=== PATIENT | male | born 1970 | race Caucasian/White ===

== ENCOUNTER 2020-05-19 21:28 | Emergency (ER) | payer OTHER, SELFPAY ==
--- NOTE | ~2020-05-19 | CT_ITS ---
EXAMINATION: CT orbit BI w con DATE: 05/19/2020 22:24 INDICATION: Left-sided headache, left sided conjunctival hemorrhage. TECHNIQUE: Computed tomography (CT) of the orbits was performed with 75 cc of Omnipaque 350 intraveno us contrast. The dose-length product (DLP) was 262.38 mGy-cm. Automated exposure control and iterativ e reconstruction technique were employed. COMPARISON: None. FINDINGS: The globes are unremarkable. The orbits are normal. No abnormal enhancement is present. The facial bones are normal. The paranasal sinuses are well aerated. Margaret bullosa is noted in the left middle turbinate. IMPRESSION: 1. No CT correlate for the patient's symptoms. Reviewed, dictated and finalized at location A. OMER OPERATOR
--- NOTE | ~2020-05-19 | CT_ITS ---
EXAMINATION: CT brain wo con INDICATION: Left-sided headache, subconjunctival hemorrhage COMPARISON: None TECHNIQUE: Standard unenhanced head CT. The dose-length product (DLP) was 605.33 mGy-cm. The mA was a djusted according to patient size. Iterative reconstruction technique was employed. FINDINGS: There is no intracranial hemorrhage, acute infarction, or abnormal mass lesion. The ventric les are normal. There is no abnormal mass effect or midline shift. The ventura-white matter differentiat ion is normal. The basal cisterns are patent. The orbits are normal. The paranasal sinuses, mastoids and calvarium are normal. IMPRESSION: 1. No acute intracranial abnormality. Reviewed, dictated and finalized at location A. MOTIVE PIPE FITTER
[2020-05-19 21:31] VITALS: BP 139/81; PULSE 83; RESP 17; TEMP 36.7; O2SAT 98
--- NOTE | 2020-05-19 21:34 | ED.EYEPROB ---
HPI - Eye Problem General Chief complaint: Eye Problems Stated complaint: headache Time Seen by Provider: 05/19/20 21:34 Source: patient Mode of arrival: ambulatory Limitations: no limitations History of Present Illness HPI Narrative: Patient is a 49 yo male who presented to the ER for evaluation of left eye irritation and left sided headache. Pt states he experiences headaches daily which is normal for him, however started to experience a left sided headache with pain behind his left eye. Pt also with redness to left eye that developed suddenly. Pt reports his vision might be slightly blurry in his left eye. Not on any anticoagulation. He denies any straining activity or heavy lifting today. He does work out daily and did work out today, but nothing abnormal for him. He denies frontal eye pain, tearing, or discharge. No history of trauma to the eye. He does not wear contact lenses. Related Data Home Medications Medication Instructions Recorded Confirmed meloxicam 05/19/20 05/19/20 Allergies Allergy/AdvReac Type Severity Reaction Status Date / Time No Known Allergies Allergy Verified 05/19/20 21:30 Review of Systems Review of Systems: Narrative: CONSTITUTIONAL: Denies fever CARDIOVASCULAR: Denies chest pain RESPIRATORY: Denies cough or dyspnea. 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 EYES: 2+ PERRLA and EOMI. left subconjunctival hemorrhage. No mass. No hyphema. Extraocular movements intact without nystagmus or pain. No abrasion. ENT: Nares clear, no rhinorrhea or epistaxis. Mucous membranes moist. NECK: Supple. CHEST: No respiratory distress, breathing even and non labored HEART: Regular rate, sinus rhythm ABDOMEN:Non distended, non tender EXTREMITIES: Normal range of motion. No edema. SKIN: Warm, dry, no rash. NEURO:No focal deficits. Alert and oriented x3 Course Vital Signs Vital signs: Vital Signs Temperature 36.7 C 05/19/20 21:31 Pulse Rate 83 05/19/20 21:31 Respiratory Rate 17 05/19/20 21:31 Blood Pressure 139/81 05/19/20 21:31 Pulse Oximetry 98 05/19/20 21:31 Temperature 36.7 C 05/19/20 21:31 Pulse Rate 83 05/19/20 21:31 Respiratory Rate 17 05/19/20 21:31 Blood Pressure 139/81 05/19/20 21:31 Pulse Oximetry 98 05/19/20 21:31 MDM - Eye Problem MDM Narrative Medical decision making narrative: Patient presented for evaluation of pain behind the left eye, headache and left subconjunctival hemorrhage. Patient has no hyphema. Visual acuity tested, OD 20/20, OS 20/30, OU 20/20. Intraocular pressure in the right eye average of 22. Intraocular pressure in the left eye average of 24, however pt continuously blinking which can increase pressure measurements. No abrasions. Laboratory results are normal. CT without acute intracranial abnormality, mass-effect, evidence of retrobulbar hemorrhage, hematoma or abnormality in the orbits. Patient was reassessed, had no change in visual acuity. Normal neurological exam. At this point, I am unsure if possibly the subconjunctival hemorrhage occurred causing him headache or of the headache occurred causing the hemorrhage, the patient is not hypertensive, he is not anticoagulated. He is not hav
[2020-05-19 21:54] LABS: Basophils Absolute Auto 0.1 K/mm3 (0.0-0.1); Basophils Percent Auto 0.6 % (0.2-1.2); Eosinophils Absolute Auto 0.1 K/mm3 (0-0.3); Eosinophils Percent Auto 0.7 % (0-4.4); Hemoglobin 15.8 g/dL (14.0-18.0); Immature Granulocyte Absolute 0.03 K/mm3 (0.00-0.031); Immature Granulocyte Percent A 0.4 % (0-0.5); Lymphocytes Absolute Auto 1.67 K/mm3 (0.9-3.2); Lymphocytes Percent Auto 19.8 % (18.3-44.2); Mean Corpuscular HGB Conc 34.3 g/dl (32-36); Mean Corpuscular Hemoglobin 29.9 pg (26-34); Mean Platelet Volume 9.2 fl (7.4-10.4); Monocytes Absolute Auto 0.9 K/mm3 (0.1-0.6); Monocytes Percent Auto 10.9 % (2.6-8.5); Neutrophils Absolute Auto 5.7 K/mm3 (1.3-6.7); Neutrophils Percent Auto 67.6 % (45.5-73.1); Platelet Count Result 268 k/mm3 (150-375); Red Blood Count 5.29 M/mm3 (4.6-6.20); Red Cell Distribution Width 12.7 % (11.5-14.5); White Blood Count 8.4 K/mm3 (4.5-10.0)
[2020-05-19 22:06] LABS: Anion Gap 8 mmol/L (8-16); Blood Urea Nitrogen 15 mg/dL (9-20); Calcium 9.2 mg/dL (8.4-10.2); Carbon Dioxide 30 mmol/L (22-30); Chloride 99 mmol/L (98-107); Estimated CRCL calculation 111 ml/min; Estimated Glomerular Filt Rate > 60; Glucose 106 mg/dL (75-110); Potassium 4.1 mmol/L (3.4-5.0); Sodium 137 mmol/L (137-145)
[2020-05-19 23:15] VITALS: BP 141/76; PULSE 63; RESP 18; O2SAT 99
== END 2020-05-19 23:15 | disposition home or self-care (01) ==
PROVIDERS: Emergency Provider Emergency Medicine
DX: H11.32 Conjunctival hemorrhage, left eye (principal)
CPT/HCPCS: 36415; 70450; 70481; 80048; 85025; 99284; Q9967